=== PATIENT | male | born 1995 | race Caucasian/White ===

== ENCOUNTER 2021-07-14 21:00 | Emergency (ER) | payer OTHER ==
[~2021-07-14 21:00] MED LIST: CLEOCIN HCL300 MG PO; TORADOL 10 MG T10 MG PO
[2021-07-15] MEDS ORDERED: NAPROXEN500 MG PO (08:25)
[2021-07-15] MEDS ORDERED: BACTROBAN OINT22 GM EXT (08:25)
[2021-07-15] MEDS ORDERED: CEPHALEXIN500 M1 PO (08:25)
== END 2021-07-14 21:50 | disposition left against medical advice (07) ==
LOC: ER1 21:00
DX: Z53.21 Procedure and treatment not carried out due to patient leaving prior to being seen by health care provider (principal)

== ENCOUNTER 2021-07-14 23:18 | Emergency (ER) | payer OTHER ==
[2021-07-15] MEDS ORDERED: NAPROXEN500 MG PO (08:25)
[2021-07-15] MEDS ORDERED: CEPHALEXIN500 M1 PO (08:25)
[2021-07-15] MEDS ORDERED: BACTROBAN OINT22 GM EXT (08:25)
== END 2021-07-15 08:28 | disposition home or self-care (01) ==
LOC: ER1 23:18
DX: S01.311A Laceration without foreign body of right ear, initial encounter (principal); F17.200 Nicotine dependence, unspecified, uncomplicated; W22.8XXA Striking against or struck by other objects, initial encounter
CPT/HCPCS: 70450; 70486; 99283